=== PATIENT | male | born 1955 | race African-American/Black ===

== ENCOUNTER 2019-10-13 01:31 | Emergency (ER) | payer MEDICAID, OTHER ==
[~2019-10-13] VITALS: Ht 185.4 cm; Wt 91.0 kg
[2019-10-13 01:33] VITALS: BP 147/80
== END 2019-10-13 03:45 | disposition home or self-care (01) ==
LOC: ER 01:31
DX: R06.02 Shortness of breath (principal); F41.9 Anxiety disorder, unspecified; E11.22 Type 2 diabetes mellitus with diabetic chronic kidney disease; I12.0 Hypertensive chronic kidney disease with stage 5 chronic kidney disease or end stage renal disease; N18.6 End stage renal disease
CPT/HCPCS: 71046; 99283

== ENCOUNTER 2019-11-08 16:50 | Emergency (ER) | payer MEDICAID ==
[~2019-11-08] VITALS: Ht 185.4 cm; Wt 72.0 kg
[2019-11-08 18:29] LABS: CHLORIDE 105 mEq/L (98-107)
[2019-11-08 18:30] LABS: BASOPHILS % 1.1 % (0.0-2.0); EOSINOPHILS % 0.3 % (0.0-5.0); HEMATOCRIT. 30.5 % (42.0-52.0); HEMOGLOBIN. 10.3 g/dL (14.0-18.0); LYMPHOCYTES % 14.1 % (20.0-50.0); MEAN CORPUSCULAR HEMOGLOBIN 34.7 pg (28.0-32.0); MEAN CORPUSCULAR VOLUME 102.3 fL (80.0-94.0); MEAN PLATELET VOLUME 8.6 fl (7.4-10.4); MONOCYTES % 7.6 % (2.0-8.0); NEUTROPHILS % 76.9 % (40.0-76.0); PLATELET 230 x1000/uL (130-400); RED BLOOD CELL COUNT 2.98 mill/uL (4.7-6.1); RED CELL DISTRIBUTION WIDTH 14.4 % (11.6-14.6)
[2019-11-08 18:32] LABS: INR 1.1; PROTHROMBIN TIME 11.3 sec (9.6-11.0)
[2019-11-08] MEDS ORDERED: DILTIAZEM HCL 5MG/ML 5ML VIAL IV ONE (18:45)
[2019-11-08] MEDS ORDERED: ASPIRIN 81MG TABLET PO ONE (18:45)
[2019-11-08 18:59] VITALS: BP 184/120
== END 2019-11-08 20:00 | disposition left against medical advice (07) ==
LOC: ER 16:50 → EDBEDREQ 19:07 → EDBEDREQTM 19:07 → ER 20:00 → CANBEDREQ 22:36
DX: I21.4 Non-ST elevation (NSTEMI) myocardial infarction (principal); I12.0 Hypertensive chronic kidney disease with stage 5 chronic kidney disease or end stage renal disease; N18.6 End stage renal disease; E87.70 Fluid overload, unspecified; R04.2 Hemoptysis; Z99.2 Dependence on renal dialysis
CPT/HCPCS: 36415; 71045; 80053; 84484; 85025; 85610; 87040; 93005; 96374; 99285; J3490; Z7610

== ENCOUNTER 2021-04-16 03:46 | Inpatient (IN) | payer MEDICARE, MEDICAID ==
[~2021-04-16] VITALS: Ht 185.4 cm; Wt 68.0 kg
[~2021-04-16 03:46] MED LIST: AMI2 PO
[2021-04-16 05:41] LABS: CHLORIDE 105 mEq/L (98-107)
[2021-04-16 05:43] LABS: BASOPHILS % 0.8 % (0.0-2.0); EOSINOPHILS % 0.9 % (0.0-5.0); HEMATOCRIT. 27.5 % (42.0-52.0); HEMOGLOBIN. 8.7 g/dL (14.0-18.0); LYMPHOCYTES % 15.3 % (20.0-50.0); MEAN CORPUSCULAR HEMOGLOBIN 33.4 pg (28.0-32.0); MEAN CORPUSCULAR VOLUME 105.6 fL (80.0-94.0); MEAN PLATELET VOLUME 7.8 fl (7.4-10.4); MONOCYTES % 10.3 % (2.0-8.0); NEUTROPHILS % 72.7 % (40.0-76.0); PLATELET 185 x1000/uL (130-400); RED BLOOD CELL COUNT 2.61 mill/uL (4.7-6.1); RED CELL DISTRIBUTION WIDTH 15.7 % (11.6-14.6)
[2021-04-16] MEDS ORDERED: CALCIUM CHLORIDE 1GM/10ML SYR IV ONE (06:15)
[2021-04-16] MEDS ORDERED: DEXTROSE 50% WATER 50ML SYRINGE IV ONE (06:15)
[2021-04-16] MEDS ORDERED: ALBUTEROL (0.083%) 2.5MG/3ML NEB HHN ONE (06:15)
[2021-04-16] MEDS ORDERED: SODIUM BICARBONATE 8.4% 1 MEQ/ML 50ML SYR IV ONE (06:15)
[2021-04-16] MEDS ORDERED: INSULIN REGULAR (HUMULIN R) 300UNITS/3ML VIAL IV ONE (06:15)
[2021-04-16] MEDS ORDERED: MAGNESIUM/ALUMINUM HYDROXIDE/SIMETHICONE 30ML UDC PO PRN (08:00)
[2021-04-16] MEDS ORDERED: ONDANSETRON HCL 4MG/2ML INJ IV PRN (08:00)
[2021-04-16] MEDS ORDERED: CLONIDINE 0.1MG TABLET PO PRN (08:00)
[2021-04-16] MEDS ORDERED: HYDROCODONE/ACETAMINOPHEN 5/325MG TABLET PO PRN (08:00)
[2021-04-16] MEDS ORDERED: ENOXAPARIN 40MG/0.4ML SYR SUBCUT SCH (08:00)
[2021-04-16] MEDS ORDERED: DOCUSATE SODIUM 100MG CAPSULE PO PRN (08:00)
[2021-04-16] MEDS ORDERED: GUAIFENESIN 200MG/10ML SUGAR FREE UDC PO PRN (08:00)
[2021-04-16] MEDS ORDERED: ACETAMINOPHEN 325MG TABLET PO PRN (08:00)
[2021-04-16] MEDS ORDERED: NALOXONE HCL 0.4MG/ML VIAL IV PRN (08:15)
[2021-04-16] MEDS ORDERED: AMLODIPINE 10MG TABLET PO SCH (09:00)
[2021-04-16] MEDS: ENOXAPARIN 30MG/0.3ML SYR SUBCUT SCH (09:43)
[2021-04-16] MEDS: METOPROLOL TARTRATE 25MG TABLET PO SCH ×2 (09:53→21:00)
[2021-04-16] MEDS: FOLIC ACID/VITAMIN B COMP W-C TABLET PO SCH (10:22)
[2021-04-16] MEDS ORDERED: TAMSULOSIN HCL 0.4MG SR CAPSULE PO NR (14:45)
[2021-04-16] MEDS ORDERED: TAMSULOSIN HCL 0.4MG SR CAPSULE PO SCH ×2 (15:00→21:00)
[2021-04-16 16:00] VITALS: BP 151/98
[2021-04-16] MEDS ORDERED: ATOR40TA70 MT (18:25)
[2021-04-16] MEDS ORDERED: ASPI-1406 MT (18:25)
[2021-04-16] MEDS ORDERED: SEVE800T25 PO (18:25)
[2021-04-16] MEDS ORDERED: CINA30 MT (18:25)
[2021-04-16] MEDS ORDERED: TAMS-11 MT (18:25)
[2021-04-16] MEDS ORDERED: METO-411 MT (18:25)
[2021-04-16] MEDS ORDERED: FOLI0.8T27 PO (18:25)
[2021-04-16] MEDS ORDERED: ISOS60TA76 MT (18:25)
[2021-04-16] MEDS ORDERED: IVAB5TAB MT (18:25)
[2021-04-16] MEDS ORDERED: PANT40TA51 MT (18:25)
[2021-04-16] MEDS ORDERED: SERT-422 MT (18:25)
[2021-04-16 20:00] VITALS: BP 118/72
[2021-04-16] MEDS ORDERED: EPOETIN ALFA-EPBX 4,000 UNIT/ML VIAL SUBCUT SCH (21:00)
[2021-04-17] VITALS: BP 111/63
[2021-04-17 04:00] VITALS: BP 110/60
[2021-04-17 04:37] LABS: BASOPHILS % 0.9 % (0.0-2.0); EOSINOPHILS % 1.9 % (0.0-5.0); HEMATOCRIT. 24.8 % (42.0-52.0); HEMOGLOBIN. 8.4 g/dL (14.0-18.0); LYMPHOCYTES % 20.3 % (20.0-50.0); MEAN CORPUSCULAR HEMOGLOBIN 35.1 pg (28.0-32.0); MEAN CORPUSCULAR VOLUME 103.5 fL (80.0-94.0); MONOCYTES % 13.5 % (2.0-8.0); NEUTROPHILS % 63.4 % (40.0-76.0); RED BLOOD CELL COUNT 2.39 mill/uL (4.7-6.1); RED CELL DISTRIBUTION WIDTH 15.2 % (11.6-14.6)
[2021-04-17 04:44] LABS: CHLORIDE 105 mEq/L (98-107)
[2021-04-17 04:51] LABS: PHOSPHORUS 4.7 mg/dL (2.5-4.9)
[2021-04-17 04:58] LABS: MEAN PLATELET VOLUME 8.9 fl (7.4-10.4); PLATELET 140 x1000/uL (130-400); PLATELET ESTIMATE NORMAL
[2021-04-17 08:00] VITALS: BP 128/84
[2021-04-17] MEDS ORDERED: ASPIRIN 81MG EC TABLET PO SCH (09:00)
[2021-04-17] MEDS ORDERED: SERTRALINE HCL 50MG TABLET PO SCH (09:00)
[2021-04-17] MEDS ORDERED: ISOSORBIDE MONONITRATE 60MG TABLET SR 24HR PO SCH (09:00)
[2021-04-17] MEDS ORDERED: PANTOPRAZOLE 40MG DR TABLET PO SCH (09:00)
[2021-04-17] MEDS: FOLIC ACID/VITAMIN B COMP W-C TABLET PO SCH (09:24)
[2021-04-17] MEDS: METOPROLOL TARTRATE 25MG TABLET PO SCH (09:25)
[2021-04-17] MEDS: ENOXAPARIN 30MG/0.3ML SYR SUBCUT SCH (09:25)
[2021-04-17 12:00] VITALS: BP 124/80
[2021-04-17 13:36] VITALS: BP 124/80
[2021-04-17 15:29] LABS: HEPATITIS B SURFACE ANTIGEN NEGATIVE
[2021-04-17] MEDS ORDERED: CINACALCET HCL 30MG TABLET PO SCH (17:00)
[2021-04-17] MEDS ORDERED: TAMSULOSIN HCL 0.4MG SR CAPSULE PO SCH (21:00)
[2021-04-17] MEDS ORDERED: ATORVASTATIN CALCIUM 40MG TABLET PO SCH (21:00)
== END 2021-04-17 14:25 | disposition home or self-care (01) | DRG 291 ==
LOC: ER 03:58 → 8WST 05:47 → ENRESERV 13:18 → 8WST 16:46
PROVIDERS: ADMIT Hospitalist; ATTEND Hospitalist
DX: I13.2 Hypertensive heart and chronic kidney disease with heart failure and with stage 5 chronic kidney disease, or end stage renal disease (principal); I50.23 Acute on chronic systolic (congestive) heart failure; N18.6 End stage renal disease; E44.0 Moderate protein-calorie malnutrition; I48.92 Unspecified atrial flutter; I47.1 Supraventricular tachycardia; E87.5 Hyperkalemia; I42.0 Dilated cardiomyopathy; I48.0 Paroxysmal atrial fibrillation; N40.0 Benign prostatic hyperplasia without lower urinary tract symptoms; I44.7 Left bundle-branch block, unspecified; F17.200 Nicotine dependence, unspecified, uncomplicated; Z20.822 Contact with and (suspected) exposure to COVID-19; D64.9 Anemia, unspecified; K59.00 Constipation, unspecified; I25.2 Old myocardial infarction; Z79.899 Other long term (current) drug therapy; Z99.2 Dependence on renal dialysis; Z95.810 Presence of automatic (implantable) cardiac defibrillator; Z82.49 Family history of ischemic heart disease and other diseases of the circulatory system
CPT/HCPCS: 36415; 71045; 80053; 83605; 83880; 84100; 84484; 85025; 86705; 86709; 86803; 87340; 93005; 99291; C9803; J0885; J1650; J1815; J3490; U0003; U0005